=== PATIENT | male | born 1955 | race Caucasian/White ===

== ENCOUNTER 2017-12-18 05:44 | Observation (INO) | payer OTHER ==
--- NOTE | 2017-12-17 15:37 | GHP ---
[f rep st] PREOP HISTORY AND PHYSICAL DATE OF ADMISSION: 12/18/2017 ADMISSION DIAGNOSIS: Benign prostatic hypertrophy with urinary obstruction. HISTORY OF PRESENT ILLNESS: This is a 62-year-old gentleman who has had trouble voiding, and on eval uation, it was noted that he had used Flomax in the past, and that has gradually abated in effectiven ess. He has required a catheter in the past because of urinary retention. He has had a noted elevat ed PSA. There has been no family history of prostate cancer. He had a PSA of 3.5 in 2012, a 4K scor e of 8%, and we have reviewed all of his previous passed, and he desires to undergo a TUR of the pros manriquez. Options have been photovaporization, thermal therapy, continue the medications. He has had an AUA score on July 18, 2017 that showed a total score of 16, and a Quality of Life score is 5/unha ppy. On his transrectal ultrasound of the prostate, it revealed that he had a large intravesical lob e of the prostate. Prostate volume was 53.9, and he had a cystoscopy performed, and it showed he had the intravesical lobe of the prostate protruding into the bladder, and once again, recommendation gilliland d been a TURP. He did have a urodynamics procedure. The urodynamics revealed that he had a postvoid residual of up to 258 mL. His bladder capacity was 690, and when he got the urge, he had a signific ant uninhibited contraction at that volume and then had high voiding pressures with low voiding flows , and the nomogram on the study said that he had obstruction. He had a peak flow of 10.6 mL/second, average flow of 4.8 mL/second. Maximum pressure was 88 cm of water pressure, and the residual urine varied between 213-250 mL. PAST MEDICAL HISTORY: BPH. He has had herpes and a prostate nodule with urinary obstruction. He gilliland s had inguinal hernia repair and scrotal surgery in the past. MEDICATIONS: Include acyclovir, Flomax, multivitamins. ALLERGIES: No known drug allergies. FAMILY HISTORY: Positive for pancreatic cancer and diabetes. SOCIAL HISTORY: He has moderate alcohol consumption, nonsmoker. IMMUNIZATIONS: Up to date. REVIEW OF SYSTEMS: Negative cardiac, respiratory, GI and endocrine. PHYSICAL EXAMINATION: VITAL SIGNS: Stable. CHEST: Clear. HEART: Regular rate and rhythm. ABDOM EN: Normal. No organomegaly, rebound or guarding. LOWER EXTREMITIES: Normal. : The prostate i s approximately 60 g. His PSA as of 07/22/2017 was 5.1. PSA in June 2016 was 6.1. He had a PSA density of 0.11, and a t the present time, he was admitted for transurethral resection of the prostate. Written and verbal consent were obtained, and indications and complications were discussed, and he is admitted as noted. Copy requested to: Dr. Harvey /[id number]/MODL
[2017-12-18] MEDS ORDERED: LIDOCAINE 1% 2 ML INJ ID PRN (06:07)
[2017-12-18] MEDS ORDERED: LR 1,000 ML IV ONE (06:07)
[2017-12-18] MEDS ORDERED: LIDOCAINE 2% JELLY 20 ML (UROJECT) ONE (06:59)
[2017-12-18] MEDS ORDERED: ceFAZolin 2 GM/SWFI 2 GM/20 ML SYR IVP ONE ×2 (07:00→07:05)
--- NOTE | 2017-12-18 07:07 | PDHPUP ---
History & Physical Update H&P update statement: This history and physical update is based on an assessment of the patient which was completed after admission or registration (within 24 hours), but prior to the surgery/procedure. H&P update: H&P reviewed & patient examined
[2017-12-18] MEDS ORDERED: MIDAZOLAM 2 MG/2 ML VIAL IVP ONE (07:13)
--- NOTE | 2017-12-18 07:17 | PDANEPAE ---
ANE History of Present Illness 62 yo with BPH ANE Past Medical History - Cardiovascular History Hx Hypertension: No Hx Arrhythmias: No Hx Chest Pain: No Hx Coronary Artery / Peripheral Vascular Disease: No Hx CHF / Valvular Disease: No Hx Palpitations: No Cardiovascular History Comment: has seen [facility] off and on for years for hx of vasovagal syncope- not on any medications at this time. [facility] in [place]. - Pulmonary History Hx COPD: No Hx Asthma/Reactive Airway Disease: No Hx Recent Upper Respiratory Infection: No Hx Oxygen in Use at Home: No Hx Sleep Apnea: No Sleep Apnea Screening Result - Last Documented: Negative - Neurologic History Hx Cerebrovascular Accident: No Hx Seizures: No Hx Dementia: No - Endocrine History Hx Diabetes: No - Renal History Hx Renal Disorders: Yes Renal History Comment: bph - Liver History Hx Hepatic Disorders: No - Neurological & Psychiatric Hx Hx Neurological and Psychiatric Disorders: No - Cancer History Hx Cancer: No - Congenital Disorder History Hx Congenital Disorders: No - GI History Hx Gastrointestinal Disorders: No Gastrointestinal History Comment: IBS/ mild- controled with diet - Other Health History Other Health History: wears contacts - Chronic Pain History Chronic Pain: No - Surgical History Prior Surgeries: 12/20/13 bilateral ing hernia repair with Isi. 2003-hand cyst. 1969-hydrocele. 1966-hernia/gerardo. T & A ANE Review of Systems Review of systems is: negative Review of Systems: - Exercise capacity METS (RN): 4 METS ANE Patient History - Allergies Allergies/Adverse Reactions: No Known Allergies Allergy (Verified 12/18/17 06:11) - Home Medications Home medications: home medication list seen and reviewed Home Medications: valACYclovir [Valtrex (*)] 500 mg PO DAILY 05/14/16 [Last Taken 12/18/17 05:15] Ascorbic Acid [Vitamin C 500 mg (*)] 500 mg PO BID 12/10/17 [Last Taken 12/11/17 ] Multivitamins [Multivitamin (*)] 1 each PO DAILY 12/10/17 [Last Taken 12/11/17] Tamsulosin HCl [Flomax 0.4 MG (*)] 0.4 mg PO DAILY@1830 12/10/17 [Last Taken 10/05 21:00] - NPO status NPO Status: no food or drink >8 hours NPO Since - Liquids (Date): 12/17/17 NPO Since - Liquids (Time): 22:00 NPO Since - Solids (Date): 12/17/17 NPO Since - Solids (Time): 20:00 - Smoking Hx Smoking Status: Never smoked - Alcohol Use Alcohol Use: Rarely - Family Anes Hx Family Hx Anesthesia Complications: none ANE Labs/Vital Signs - Vital Signs Blood Pressure: 128/80 Heart Rate: 50 Respiratory Rate: 16 O2 Sat (%): 94 Height: 177.8 cm Weight: 74.389 kg ANE Physical Exam - Airway Neck exam: FROM Mallampati Score: Class 1 Mouth exam: normal dental/mouth exam - Pulmonary Pulmonary: no respiratory distress - Cardiovascular Cardiovascular: regular rate and rhythym - ASA Status ASA Status: II
[2017-12-18] MEDS ORDERED: PROPOFOL 200 MG/20 ML VIAL ONE (07:35)
[2017-12-18] MEDS ORDERED: fentaNYL 100 MCG/2 ML INJ ONE (07:35)
[2017-12-18] MEDS: LIDOCAINE 2% JELLY 20 ML (UROJECT) ONE ×2 (08:22→08:31)
[2017-12-18] MEDS ORDERED: HYDROCODONE/APAP 5/325 TAB PO PRN (08:53)
[2017-12-18] MEDS ORDERED: OPIUM/BELLADONNA ALKALO SUPP PR PRN (08:53)
[2017-12-18] MEDS ORDERED: ONDANSETRON 4 MG/2 ML VIAL IVP PRN (08:54)
[2017-12-18] MEDS ORDERED: ONDANSETRON DISINTEGRATING 4 MG TAB PO PRN (08:54)
[2017-12-18] MEDS ORDERED: ZOLPIDEM TARTRATE 5 MG TAB PO PRN (08:54)
--- NOTE | 2017-12-18 09:01 | GOP ---
[f rep st] OPERATIVE REPORT DATE OF OPERATION: 12/18/2017 SURGEON: Curt Au MD PREOPERATIVE DIAGNOSIS: Benign prostatic hypertrophy, urinary obstruction. POSTOPERATIVE DIAGNOSIS: Benign prostatic hypertrophy, urinary obstruction. PROCEDURE PERFORMED: Transurethral resection of prostate. FINDINGS: BPH DESCRIPTION OF PROCEDURE: This gentleman underwent general anesthesia and after appropriate time-out and being prepped and draped in normal sterile fashion, the scope was passed under direct vision into his bladder and he had an intravesical lateral lobar hypertrophy with a bipolar loop. I initiated the resection taking down the intravesical lobe of the prostate in the right lower lobe, right posterior lobe, left lateral lobe and left portion of the posterior lobe resected. Bladder was Ellik 'd free of all chips and clots. Visualization revealed no residual chips or clots. Ureteral orifices preserved. Verumontanum and external sphincter approximated at the midline symmetrically. Verumontanum was preserved. A 22 three-way catheter passed in the bladder over a Mandarin guide, 70 cc balloon inflated, traction placed, and irrigated clear. The specimen sent to Pathology. He will be admitted for postoperative care. No complications encountered and specimen pathology is pending. /[id number]/MODL MTDD
[2017-12-18] MEDS ORDERED: PROMETHAZINE HCL 25 MG/ML INJ IVP PRN (10:42)
[2017-12-18] MEDS ORDERED: NALOXONE HCL 0.4 MG/ML INJ IVP PRN (10:42)
--- NOTE | 2017-12-18 10:42 | POSTANESTH ---
Post Anesthetic Evaluation Cardiovascular Status: Normal, Stable Respiratory Status: Normal, Stable Level of Consciousness/Mental Status: Can Participate in Eval Pain Control: Adequate, Prn Tx Ordered Nausea/Vomiting Control: Adequate, Prn Tx Ordered Complications Possibly Related to Anesthesia: None Noted
[2017-12-18] MEDS: ACETAMINOPHEN 325 MG TAB PO PRN ×2 (11:23→17:31)
[2017-12-18] MEDS: D5W LR 1,000 ML IV SCH (11:29)
[2017-12-19] MEDS: D5W LR 1,000 ML IV SCH (00:33)
[2017-12-19 11:09] VITALS: BP 112/75
== END 2017-12-19 14:37 | disposition home or self-care (01) ==
LOC: INTOOBSV 05:44 → F1N 05:44
PROVIDERS: ADMIT Specialist; ATTEND Specialist
PROC: 0VB08ZZ Excision of Prostate, Via Natural or Artificial Opening Endoscopic (ICD-10-PCS; principal; 2017-12-18 07:15)
DX: N40.1 Benign prostatic hyperplasia with lower urinary tract symptoms (principal); N13.8 Other obstructive and reflux uropathy; N41.1 Chronic prostatitis
CPT/HCPCS: 52601; G0378; J0690; J2250; J2704; J3010